=== PATIENT | male | born 1955 | race Caucasian/White ===

== ENCOUNTER → 2018-11-20 | Outpatient (CLI) | payer SELFPAY ==
--- NOTE | 2018-11-20 12:27 | PCVCIMAG ---
APPROVED REPORT Study performed: 11/20/2018 11:09:36 EXAM: Comprehensive 2D, Doppler, and color-flow Echocardiogram Patient Location: Echo lab BSA: 1.88 HR: 78 bpmBP: 126/78 mmHg Rhythm: NSR Other Information Study Quality: Adequate Indications Murmur Fatigue 2D Dimensions IVSd: 8.46 (7-11mm)LVOT Diam: 21.25 (18-24mm) LVDd: 38.62 mm PWd: 9.16 (7-11mm)Ascending Ao: 32.67 (22-36mm) LVDs: 29.45 (25-40mm) Left Atrium: 29.34 (27-40mm) Aortic Root: 33.20 mm LV Single Plane 4CH: 50.54 % LV Single Plane 2CH: 55.90 % Biplane EF: 53.0 % Volumes Left Atrial Volume (Systole) Single Plane 4CH: 36.35 mLSingle Plane 2CH: 51.75 mL LA ESV Index: 25.00 mL/m2 Aortic Valve AoV Peak Danny.: 1.76 m/s AO Peak Gr.: 12.36 mmHgLVOT Max P.22 mmHg LVOT Max V: 0.88 m/s MARYSOL Vmax: 1.78 cm2 Mitral Valve E/A Ratio: 1.1 MV Decel. Time: 201.41 ms MV E Max Danny.: 0.51 m/s MV A Danny.: 0.45 m/s IVRT: 121.11 ms Pulmonary Valve PV Peak Danny.: 0.82 m/sPV Peak Gr.: 2.70 mmHg Pulmonary Vein P Vein S: 0.22 m/sP Vein A: 0.41 m/s P Vein D: 0.32 m/sP Vein A Dur.: 110.7 msec P Vein S/D Ratio: 0.69 Tricuspid Valve TR Peak Danny.: 2.16 m/s TR Peak Gr.: 18.65 mmHg TV Vmax: 0.43 m/s Left Ventricle The left ventricle is normal size. There is normal LV segmental wall motion. There is normal left ventricular wall thickness. Left ventricular systolic function is normal. The left ventricular ejection fraction is within the normal range. LVEF is 55-60%. Grade I - abnormal relaxation pattern. Right Ventricle The right ventricle is normal size. The right ventricular systolic function is normal. Atria The left atrium size is normal. The right atrium size is normal. Aortic Valve Mild-moderate aortic valve sclerosis. The aortic valve is trileaflet. No aortic regurgitation is present. There is no aortic valvular stenosis. Mitral Valve The mitral valve is normal in structure. Mild mitral regurgitation. No evidence of mitral valve stenosis. Tricuspid Valve The tricuspid valve is normal in structure. Mild tricuspid regurgitation with PAP of 26 mmHg. Pulmonic Valve The pulmonary valve is normal in structure. Trace pulmonic regurgitation. Great Vessels The aortic root is normal in size. IVC is normal in size and collapses >50% with inspiration. Pericardium There is no pericardial effusion. There is no pleural effusion. <Conclusion> The left ventricle is normal size. LVEF is 55-60%. Grade I - abnormal relaxation pattern. The left atrium size is normal. Mild-moderate aortic valve sclerosis. The aortic valve is trileaflet. Mild mitral regurgitation. Mild tricuspid regurgitation with PAP of 26 mmHg. The aortic root is normal in size. There is no pericardial effusion.
== END | disposition home or self-care (01) ==
LOC: PCVCIMAG 11:05
PROVIDERS: ATTEND Family Medicine
DX: I08.3 Combined rheumatic disorders of mitral, aortic and tricuspid valves (principal); R01.1 Cardiac murmur, unspecified; R53.83 Other fatigue
CPT/HCPCS: 93306